=== PATIENT | male | born 1970 ===

== ENCOUNTER 2017-11-23 06:23 | Inpatient (IN) | payer OTHER ==
[~2017-11-23 06:23] MED LIST: Buffered Lidocaine 0.9% SYRIN* 5 ML/SYR SYRINGE INTRADERM ONE; Metoclopramide TAB* 10 MG PO ONE; Sodium Citrate/Citric Acid* 15 ML UDC PO ONE
[2017-11-23] MEDS ORDERED: Sodium Citrate/Citric Acid* 15 ML UDC ONE (06:39)
[2017-11-23] MEDS ORDERED: ceFAZolin 2 GM PREMIX (*) 2 GM/50 ML BAG IVPB ONE (06:39)
[2017-11-23] MEDS ORDERED: Metoclopramide TAB* 10 MG ONE (06:39)
[2017-11-23] MEDS ORDERED: Buffered Lidocaine 0.9% SYRIN* 5 ML/SYR SYRINGE ONE (06:39)
[2017-11-23] MEDS ORDERED: Thrombin 5,000 UNITS* 1 APPLIC KIT - topical use - TOPICAL ONE (07:03)
[2017-11-23] MEDS ORDERED: Lidocaine 1% MPF wEPI 200,000* 30 ML SDV ONE (07:03)
[2017-11-23] MEDS ORDERED: Bacitracin IV* 50,000 UNITS INJ ONE (07:04)
[2017-11-23] MEDS ORDERED: fentaNYL* 50 MCG/ML 2 ML VIAL (100 MCG VIAL) ONE ×4 (07:33→09:51)
[2017-11-23] MEDS ORDERED: Atracurium* 10 MG/ML 10 ML VIAL ONE (07:33)
[2017-11-23] MEDS ORDERED: Propofol* 10 MG/ML 20 ML BTL IV PUSH ONE (07:33)
[2017-11-23] MEDS ORDERED: Lidocaine 2% PF * 5 ML VIAL ONE (08:05)
[2017-11-23] MEDS ORDERED: Naloxone* 0.4 MG/ML 1 ML VIAL IV PRN (08:17)
[2017-11-23] MEDS ORDERED: Acetaminophen TAB* 325 MG PO PRN ×2 (08:17→09:15)
[2017-11-23] MEDS ORDERED: DiMENhydriNATE IV* 50 MG/ML VIAL IV PUSH PRN (08:17)
[2017-11-23] MEDS ORDERED: Atropine 1MG/ML INJ* 1 ML VIAL ONE (09:02)
[2017-11-23] MEDS ORDERED: Ondansetron INJ* 2 MG/ML VIAL IV PRN (09:15)
[2017-11-23] MEDS ORDERED: Magnesium Hydroxide LIQ* 30 ML UDC PO PRN (09:15)
[2017-11-23] MEDS ORDERED: Nicotine Inhaler* 10 MG AMP INH PRN (09:18)
[2017-11-23] MEDS ORDERED: Mouth Piece, Nicotine* 1 EACH CARTRIDGE INH PRN (09:18)
[2017-11-23] MEDS ORDERED: oxyCODONE TAB* 5 MG TAB ONE ×2 (09:23→09:51)
[2017-11-23] MEDS ORDERED: Acetaminophen TAB* 325 MG ONE (09:24)
[2017-11-23] MEDS: oxyCODONE TAB* 5 MG TAB PO PRN ×2 (09:25→09:51)
[2017-11-23] MEDS: fentaNYL* 50 MCG/ML 2 ML VIAL (100 MCG VIAL) IV PRN ×5 (09:27→10:10)
--- NOTE | 2017-11-23 10:59 | RAD ---
HISTORY: Right lumbar discectomy COMPARISONS: None VIEWS: 1 , portable intraoperative view of the lumbar spine at 7:13 AM FINDINGS: A single portable intraoperative view of the lumbar spine performed for localization during spinal surgery demonstrates a metallic probe opposite of L4-L5 counting from L5 as the last lumbar type vertebral body. IMPRESSION: LIMITED PORTABLE VIEW OF THE SPINE FOR LOCALIZATION DURING SPINAL SURGERY
[2017-11-23] MEDS ORDERED: Nicotine PATCH 21 MG/24 HR* PATCH ONE (11:17)
[2017-11-23] MEDS ORDERED: HYDROcodone/ACETAMIN 5-325 MG* 1 TAB ONE (11:17)
[2017-11-23] MEDS: HYDROcodone/ACETAMIN 5-325 MG* 1 TAB PO PRN ×3 (11:21→20:00)
[2017-11-23] MEDS: Nicotine PATCH 21 MG/24 HR* PATCH TRANSDERM SCH (11:22)
[2017-11-23] MEDS: CMCS: Pantoprazole TAB (NF) 40 MG TAB PO SCH (17:37)
[2017-11-23] MEDS: Cyclobenzaprine TAB* 10 MG PO PRN (18:23)
[2017-11-23] MEDS: Morphine VIAL* 4 MG/ML VIAL (1 ml vial) IV PRN ×2 (18:24→23:25)
[2017-11-24] MEDS: HYDROcodone/ACETAMIN 5-325 MG* 1 TAB PO PRN ×5 (00:11→20:25)
[2017-11-24] MEDS: Morphine VIAL* 4 MG/ML VIAL (1 ml vial) IV PRN ×2 (03:46→16:19)
[2017-11-24] MEDS: Nicotine Patch Removal NOTE FOLLOW UP SCH (07:18)
--- NOTE | 2017-11-24 08:00 | PN ---
Progress Note - Progress Note Date of Service: 11/24/17 SOAP: Subjective: [S/p lumbar discectomy L4-5 right, POD #1. Complains of back pain and soreness, worse with standing and walking. RLE pain into groin and thigh with standing. Required Ward and Morphine overnight. Denies headache, nausea.] Objective: [ Vital Signs: Temp Pulse Resp BP Pulse Ox 97.4 F 73 16 157/83 98 11/24/17 03:29 11/24/17 03:29 11/24/17 04:59 11/24/17 03:29 11/24/17 03:29 General: Laying in bed, no acute distress. Neuro: Right foot weakness persistent. Incision: Mild swelling, unchanged since last night.] Assessment: [Post op L4-5 discectomy, persistent low back pain managed with PO and IV medications. Will require further monitoring and care. ] Plan: [1. Add flexeril 10 mg TID 2. Continue pain management. 3. PT evaluation today. 4. Status change to inpatient. ]
[2017-11-24] MEDS: Cyclobenzaprine TAB* 10 MG PO PRN ×2 (08:11→13:52)
[2017-11-24] MEDS: Nicotine PATCH 21 MG/24 HR* PATCH TRANSDERM SCH (08:11)
[2017-11-24] MEDS: CMCS: Pantoprazole TAB (NF) 40 MG TAB PO SCH (08:13)
[2017-11-24] MEDS ORDERED: Ibuprofen TAB* 600 MG PO ONE (13:11)
[2017-11-25] MEDS: HYDROcodone/ACETAMIN 5-325 MG* 1 TAB PO PRN ×3 (00:33→09:12)
[2017-11-25] MEDS: Nicotine Patch Removal NOTE FOLLOW UP SCH (06:02)
[2017-11-25] MEDS: CMCS: Pantoprazole TAB (NF) 40 MG TAB PO SCH (07:46)
[2017-11-25] MEDS: Cyclobenzaprine TAB* 10 MG PO PRN (07:46)
[2017-11-25] MEDS: Nicotine PATCH 21 MG/24 HR* PATCH TRANSDERM SCH (07:46)
--- NOTE | 2017-11-25 07:57 | PN ---
Progress Note - Progress Note Date of Service: 11/25/17 SOAP: Subjective: [S/p lumbar discectomy L4-5 right, POD #2. RLE pain improved this morning. Ambulating independently. Denies headache and nausea. Pain well controlled with PO pain medications overnight.] Objective: [ Vital Signs: Temp Pulse Resp BP Pulse Ox 98.4 F 76 16 124/79 99 11/25/17 03:55 11/25/17 03:55 11/25/17 07:47 11/25/17 03:55 11/25/17 03:55 General: Alert and oriented. Laying in bed. Neuro: RLE weakness as pre-op. Incision: Intact and dressing clean. No swelling or ecchymosis. ] Assessment: [Satisfactory pos-op course. ] Plan: [1. Discharge home today. 2. Discharge instructions discussed with the patient. ]
[2017-11-25 08:16] VITALS: BP 156/93
--- NOTE | 2017-11-26 16:42 | OP ---
DATE OF OPERATION: 11/23/17 - ROOM #343 DATE OF : 70 SURGEON: Bernardino Arcos MD TUNA PURSE SEINER: ALFREDO Li ANESTHESIA: General. PRE-OP DIAGNOSIS: Herniated nucleus pulposus, L4-L5 on the right. POST-OP DIAGNOSIS: Herniated nucleus pulposus, L4-L5 on the right. OPERATIVE PROCEDURE: Partial hemilaminectomy, L4-L5 on the right, excision of herniated nucleus pulposus with microdissection. DESCRIPTION OF PROCEDURE: After satisfactory general anesthesia was obtained, the patient was placed on the operating table in the prone position with the chest supported on the Castro frame and the back slightly flexed. The lumbar region was then clipped, prepped and draped in a sterile manner for a lumbar laminectomy, and a skin incision outlined from L4 to L5 along the line of her previous incision. The patient previously had undergone a diskectomy at L5-S1 on the right side. This incision was infiltrated with 1% Xylocaine with epinephrine after which it was turned down sharply through the level of the lumbar fascia. The fascia was divided along the spinous processes of L4 and L5 and the paraspinal musculature and scar tissue stripped away from these posterior elements using the periosteal elevator and monopolar cautery. An intraoperative radiograph was obtained verifying proper localization of the L4- L5 interspace after which a partial hemilaminectomy was carried out by removing the inferior aspect of the L4 lamina and medial aspect of the facet complex with a combination of the Midas Derrick drill and Kerrison rongeurs. This was carried superiorly until the attachment of ligamentum flavum was taken down. The ligamentum flavum was then removed and generous foraminotomy was performed over the L5 nerve root. Additional inferior exposure was obtained as preoperative imaging had suggested the inferior migration of the disk fragment. At this point of surgery, the operating microscope was brought into the field , and the remainder of the procedure was done under microscopic visualization. Projecting just inferior to the disk space was a freely extruded disk fragment covered by thin rim of posterior longitudinal ligament. It was causing marked compromise of the L5 nerve root. Utilizing microdissection, disk fragment was dissected free and removed. An opening was then made at the disk space itself and the disk space cleared of any loose disk material using pituitary forceps and curettes. At the conclusion of the decompression, the L5 nerve root was noted to be free in its course. After assuring adequate hemostasis, the wound was thoroughly irrigated, after which a piece of Gelfoam was placed over the laminectomy defect. The fascia was then reapproximated with 0 Vicryl suture. The subcutaneous tissue was closed with 3-0 Vicryl suture and the skin closed with skin clips. The estimated blood loss was less then 50 cc and final sponge , padding, and needle counts were correct. The patient was taken to the recovery room, extubated and in stable condition. [id number]/[facility] #: [id number] [facility] HOSPITALSonja
== END 2017-11-25 10:45 | disposition home or self-care (01) | DRG 310 ==
LOC: OR 06:23 → SSU 09:15 → OBSVTOIN 11-24 16:06
PROVIDERS: ADMIT Neurological Surgery; ATTEND Neurological Surgery
PROC: 0SB20ZZ Excision of Lumbar Vertebral Disc, Open Approach (ICD-10-PCS; principal; 2017-11-23 07:30)
DX: M51.16 Intervertebral disc disorders with radiculopathy, lumbar region (principal); F17.210 Nicotine dependence, cigarettes, uncomplicated; Z72.89 Other problems related to lifestyle
CPT/HCPCS: 72100; A9270-GY; G0378; J0461; J0690; J2001; J2270; J2704; J3010